=== PATIENT | female | born 1980 | race Caucasian/White ===

== ENCOUNTER 2023-11-06 12:44 | Outpatient (CLI) | payer BC, OTHER, SELFPAY ==
--- NOTE | ~2023-11-06 | MR_ITS ---
EXAMINATION: MR pituitary wo/w con DATE: 11/06/2023 14:02 INDICATION: Headaches. Increased prolactin level. TECHNIQUE: Magnetic resonance imaging (MRI) of the brain and brainstem was performed without and with 20 mL Multihance intravenous contrast. Whole-brain sequences included sagittal T1-weighted FSE, axia l diffusion-weighted FS EPI, axial T2*-weighted GRE, axial T2-weighted FLAIR Propeller, and axial T2- weighted Propeller. Small [id number] sequences included sagittal and coronal T1-weighted FSE cente red at the pituitary. Postcontrast sequences included small [id number] coronal T1-weighted FSE in a time course and sagittal T1-weighted FSE and whole-brain axial T1-weighted FSE. Apparent diffusion coefficient (ADC) maps were created. COMPARISON: None. FINDINGS: There are no areas of restricted diffusion to suggest acute infarction. No intracranial hemorrhage. T here is a hypoenhancing pituitary mass occupying the left side of the pituitary fossa and both bulgin g minimally into the suprasellar cistern without contacting the more cephalad optic chiasm. There is more prominent left lateral extension into the left cavernous sinus where it contacts approximately 1 80 degree of the circumference of the cavernous portion of the left internal carotid artery. The mass measures 17 mL left or right, 13 mm craniocaudally and 12 mm anteroposteriorly. There is mild rightw chelita deviation of the pituitary stalk. No other intracranial masses or abnormal enhancement identified . There are no intraparenchymal signal abnormalities seen on the other pulse sequences. The ventricle s are symmetric and normal in size. There are no abnormal extra-axial fluid collections. Flow voids a re seen in the cerebral arteries on the T2-weighted sequences consistent with their expected patency. Visualized orbits and soft tissues are unremarkable. Mild to moderate mucosal thickening throughout the paranasal sinuses. IMPRESSION: 1. 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 Reviewed, dictated and finalized at location A. [employer] INTERVIEWER
== END 2023-11-06 12:45 ==
PROVIDERS: PCP Obstetrics & Gynecology Gynecology; Visit Provider Obstetrics & Gynecology Gynecology
DX: E22.1 Hyperprolactinemia (principal); E23.7 Disorder of pituitary gland, unspecified
CPT/HCPCS: 70553; A9577